=== PATIENT | male | born 1995 | race Caucasian/White ===

== ENCOUNTER 2016-04-29 03:08 | Emergency (ER) | payer BC ==
[2016-04-29] MEDS ORDERED: 0.9 % SODIUM CHLORIDE 1,000 ML BAG IV ONE (03:10)
[2016-04-29] MEDS ORDERED: KETOROLAC 30 MG/ML VIAL IVP ONE (03:10)
[2016-04-29] MEDS ORDERED: ONDANSETRON HCL IV 4 MG/2 ML VIAL IV ONE (03:10)
[2016-04-29 03:25] LABS: BASO % 0.5 % (0-6); EOS % 1.7 % (0-6); GRAN % 41.6 % (47-80); HEMATOCRIT 42.4 % (42.0-52.0); HEMOGLOBIN 14.9 gm/dl (14.0-18.0); LYMPH % 49.3 % (16-45); MEAN CORPUSCULAR HEMOGLOBIN 29.9 pg (27-33); MEAN CORPUSCULAR HGB CONC 35.1 g/dl (32-36); MEAN PLATELET VOLUME 8.6 fl (7.4-10.4); MONO % 6.9 % (0-9); PLATELET COUNT 330 K/uL (130-400); RED BLOOD COUNT 4.99 M/uL (4.40-5.70); RED CELL DISTRIBUTION WIDTH 12.6 % (11.5-14.5); WHITE BLOOD COUNT W/O DIFF 5.9 K/uL (4.2-12.2)
--- NOTE | 2016-04-29 03:29 | Emergency Department Record ---
History of Present Illness - General Chief complaint: Flank Pain Stated complaint: BACK PAIN Time Seen by Provider: 04/29/16 03:10 Source: Patient, Family Mode of Arrival: Ambulatory Limitations: No limitations - History of Present Illness Initial comments: pt came in after awaking in significant pain in the left flank. pt has had kidney stones in the past but does not remember what they feel like. pt has nausea MD Complaint: Other Onset/Timin -: Hour(s) Location: Left flank Radiation: L flank Severity: Moderate Quality: Aching Consistency: Constant Improves with: None Worsens with: None Reports: Nausea/vomiting - Related Data Previous Rx's Medication Instructions Recorded Hydrocodone/Acetaminophen [[place] 1 tab PO Q6H PRN #14 tab 04/29/16 5mg/325mg] Allergies Allergy/AdvReac Type Severity Reaction Status Date / Time No Known Drug Allergies Allergy Verified 04/29/16 03:20 Review of Systems Reviewed: No additional complaints except as noted below Constitutional: Reports: As per HPI. Denies: Chills, Fever, Malaise, Night sweats, Weakness, Weight change Eyes: Reports: As per HPI. Denies: Eye discharge, Eye pain, Photophobia, Vision change ENT: Reports: As per HPI. Denies: Congestion, Dental pain, Ear pain, Epistaxis , Hearing loss, Throat pain Respiratory: Reports: As per HPI. Denies: Cough, Dyspnea, Hemoptysis, Stridor, Wheezes Cardiovascular: Reports: As per HPI. Denies: Arrhythmia, Chest pain, Dyspnea on exertion, Edema, Murmurs, Orthopnea, Palpitations, Paroxysmal nocturnal dyspnea, Rheumatic Fever, Syncope Endocrine: Reports: As per HPI. Denies: Fatigue, Heat or cold intolerance, Polydipsia, Polyuria Gastrointestinal: Reports: As per HPI. Denies: Abdominal pain, Constipation, Diarrhea, Hematemesis, Hematochezia, Melena, Nausea, Vomiting Genitourinary: Reports: As per HPI. Denies: Dysuria, Frequency, Hematuria, Incontinence, Retention, Testicular pain, Testicular mass, Urgency Musculoskeletal: Reports: As per HPI. Denies: Arthralgia, Back pain, Gout, Joint swelling, Myalgia, Neck pain Skin: Reports: As per HPI. Denies: Bruising, Change in color, Change in hair/ nails, Lesions, Pruritus, Rash Neurological: Reports: As per HPI. Denies: Abnormal gait, Confusion, Headache, Numbness, Paresthesias, Seizure, Tingling, Tremors, Vertigo, Weakness Psychiatric: Reports: As per HPI. Denies: Anxiety, Auditory hallucinations, Depression, Homicidal thoughts, Suicidal thoughts, Visual hallucinations Hematological/Lymphatic: Reports: As per HPI. Denies: Anemia, Blood Clots, Easy bleeding, Easy bruising, Swollen glands Family Medical History Hx Kidney Disease: Father Physical Exam - General General Appearance: Alert, Oriented x3, Cooperative, Moderate distress - Head Head exam: Normal inspection - Eye Eye exam: Normal appearance, PERRL, EOMI Pupils: Normal accommodation - ENT ENT exam: Normal exam, Mucous membranes moist, Normal external ear exam, Normal orophraynx Ear exam: Normal external inspection. negative: External canal tenderness Nasal Exam: Normal inspection. negative: Discharge, Sinus tenderness Mouth exam: Normal external inspection, Tongue normal Teeth exam: Normal inspection. negative: Dental caries Throat exam: Normal inspection. negative: Tonsillar erythema, Tonsillar exudate - Neck Neck exam: Normal inspection, Full ROM. negative: Tenderness - Respiratory Respiratory exam: Normal lung sounds bilaterally. negative: Respiratory distress - Cardiovascular Cardiovascular Exam: Regular rate, Normal rhythm, Normal heart sounds - GI/Abdominal GI/Abdominal exam: Soft, Normal bowel sounds. negative: Tenderness - Rectal Rectal exam: Deferred - exam: Deferred - Extremities Extremities exam: Normal inspection, Full ROM, Normal capillary refill. negative: Tenderness - Back Back exam: Reports: Normal inspection, Full ROM. Denies: Muscle spasm, Rash noted, Tenderness - Neurological Neurological exam: Alert, CN II-XII intact, Normal gait, Oriented X3 - Psychiatric Psychiatric exam: Normal affect, Normal mood - Skin Skin exam: Dry, Intact, Normal color, Warm Course - Reevaluation(s) Reevaluation #1: 04/29/16 04:26 pt feels much better. Reevaluation #2: 04/29/16 04:28 pt told that he has a 6mm stone and might not be able to pass it. his pain is totally gone and pt wants to try it at home and follow up with urologist Medical Decision Making - Management Options MDM Management: Additional Work-up Planned (e.g. ADM/Transfer/OP Study) - Data Complexity MDM Data: Labs Ordered and/or Reviewed, X-Ray Ordered and/or Reviewed - Lab Data Result diagrams: 04/29/16 03:10 04/29/16 03:10 - Radiology Data Radiology results: Report reviewed, Image reviewed Disposition Disposition: Discharge Clinical Impression: Renal lithiasis Hydronephrosis Qualifiers: Hydronephrosis type: with ureteral calculous obstruction Qualified Code(s): N13.2 - Hydronephrosis with renal and ureteral calculous obstruction Disposition: Home, Self-Care Condition: (1) Good Instructions: Kidney Stones (ED), How to Strain Your Urine (ED) Additional Instructions: follow up with urologist. return sooner if worse. Prescriptions: Hydrocodone/Acetaminophen [[place] 5mg/325mg] 1 tab PO Q6H PRN #14 tab PRN Reason: Pain - General Referrals: ERYN PRINGLE M.D. [MEDICAL DOCTOR] - Forms: Patient Portal Access
[2016-04-29 03:38] LABS: ANION GAP 18.3 (7-16); BLOOD UREA NITROGEN 8 mg/dL (9-20); CARBON DIOXIDE 24.7 mmol/L (22-30); CREATININE 0.8 mg/dL (0.66-1.25); EST GLOMERULAR FILTRATION RATE > 60 ml/min; GLUCOSE,RANDOM 90 mg/dL (70-110)
[2016-04-29 04:04] LABS: URINE APPEARANCE CLEAR; URINE BILIRUBIN NEGATIVE (NEGATIVE); URINE BLOOD SMALL (NEGATIVE); URINE COLOR YELLOW; URINE GLUCOSE (UA) NEGATIVE (NEGATIVE); URINE KETONE NEGATIVE (NEGATIVE); URINE LEUKOCYTE ESTERASE NEGATIVE (NEGATIVE); URINE NITRITE NEGATIVE (NEGATIVE); URINE PROTEIN NEGATIVE (NEGATIVE); URINE UROBILINOGEN 0.2 E.U./dL (0.20 - 1.00)
[2016-04-29 04:13] LABS: URINE AMORPHOUS SEDIMENT 1+; URINE EPITHELIAL CELLS 0 - 2 (FEW); URINE WBC 0 - 2 (0-2/hpf)
[2016-04-29] MEDS ORDERED: HYDROCODONE/APAP 5/325MG TABLET PO ONE (04:27)
--- NOTE | 2016-05-03 07:58 | CT SCAN REPORT ---
EXAM: CT OF THE ABDOMEN AND PELVIS WITHOUT CONTRAST HISTORY: LEFT SIDED FLANK PAIN WORSE OVER THE PAST TWO HOURS. TECHNIQUE: Routine noncontrast CT images of the abdomen and pelvis were obtained. Comparison: 08/28/14. FINDINGS: The visualized lung bases are unremarkable. The liver, gallbladder, pancreas, spleen, and adrenals are unremarkable. Punctate nonobstructing intrarenal calculi are present bilaterally. There is a 6 mm obstructing calculus within the mid left ureter. Mild hydronephrosis and hydroureter. No right ureteral calculi or bladder calculi. The bowel is normal in caliber. The appendix has a normal noncontrast appearance. No abdominal or pelvic lymphadenopathy. The aorta is normal in caliber. No free air or free fluid. Small fat containing periumbilical hernia. No acute osseous abnormality. IMPRESSION: 1. OBSTRUCTING 6 MM CALCULUS MID LEFT URETER. THIS RESULTS IN MILD HYDRONEPHROSIS AND HYDROURETER. 2. PUNCTATE BILATERAL NONOBSTRUCTING INTRARENAL CALCULI. JOB NUMBER: [id number] [facility]
== END 2016-04-29 04:55 | disposition home or self-care (01) ==
LOC: ER 03:08
DX: N13.2 Hydronephrosis with renal and ureteral calculous obstruction (principal); R11.2 Nausea with vomiting, unspecified; Z87.442 Personal history of urinary calculi
CPT/HCPCS: 99284 ×2; 96374; 96375; 96361; 85025; 80048; 81001; 74176; J1885; J2405; J7030

== ENCOUNTER 2016-04-29 19:48 | Emergency (ER) | payer BC ==
[2016-04-29] MEDS ORDERED: KETOROLAC 30 MG/ML VIAL IVP ONE (20:06)
[2016-04-29] MEDS ORDERED: ONDANSETRON HCL IV 4 MG/2 ML VIAL IVP ONE ×2 (20:06→21:01)
[2016-04-29] MEDS ORDERED: 0.9 % SODIUM CHLORIDE 1,000 ML BAG IV ONE ×2 (20:07→21:01)
[2016-04-29 20:21] LABS: BASO % 0.3 % (0-6); EOS % 1.6 % (0-6); GRAN % 47.1 % (47-80); HEMATOCRIT 41.1 % (42.0-52.0); HEMOGLOBIN 14.3 gm/dl (14.0-18.0); LYMPH % 42.2 % (16-45); MEAN CELL VOLUME 86.7 fl (81-97); MEAN CORPUSCULAR HEMOGLOBIN 30.2 pg (27-33); MEAN CORPUSCULAR HGB CONC 34.8 g/dl (32-36); MEAN PLATELET VOLUME 8.6 fl (7.4-10.4); MONO % 8.8 % (0-9); PLATELET COUNT 289 K/uL (130-400); RED BLOOD COUNT 4.74 M/uL (4.40-5.70); RED CELL DISTRIBUTION WIDTH 12.6 % (11.5-14.5); WHITE BLOOD COUNT W/O DIFF 6.4 K/uL (4.2-12.2)
[2016-04-29 20:30] LABS: ANION GAP 15.5 (7-16); BLOOD UREA NITROGEN 13 mg/dL (9-20); CARBON DIOXIDE 26.5 mmol/L (22-30); CREATININE 0.9 mg/dL (0.66-1.25); EST GLOMERULAR FILTRATION RATE > 60 ml/min; GLUCOSE,RANDOM 85 mg/dL (70-110)
[2016-04-29] MEDS ORDERED: HYDROMORPHONE HCL 1 MG/ML CPJ IVP ONE (21:01)
--- NOTE | 2016-04-29 21:07 | Emergency Department Record ---
History of Present Illness - General Chief Complaint: Back Pain/Injury Time Seen by Provider: 04/29/16 20:05 Source: Patient Mode of Arrival: Ambulatory Limitations: No limitations - History of Present Illness Initial Comments: prt was here early this am for l flank pain and was dxd w 6mm l renal stone w hydronephrosis. pts pain was resolved sot he was sent home to f/u w urology or return if his pain returned and was not controlled w norco. pt was able to urinate. pt now returns because now his pain has returned. it radiates to the groin. Complaint: Other (l flank pain) Onset/Timin -: Days(s) Similar Symptoms Previously: Yes Severity: Moderate, Severe Severity scale (1-10): 8 Quality: Aching Consistency: Intermittent Improves With: None Worsens With: None Context: Unknown Associated Symptoms: Abdominal pain, Nausea/vomiting - Related Data Previous Rx's Medication Instructions Recorded Hydrocodone/Acetaminophen [[place] 1 tab PO Q6H PRN #14 tab 04/29/16 5mg/325mg] Allergies Allergy/AdvReac Type Severity Reaction Status Date / Time No Known Drug Allergies Allergy Verified 04/29/16 03:20 Travel Screening - Travel/Exposure Within Last 30 Days Have you traveled within the last 30 days?: No - Travel/Exposure Within Last Year Have you traveled outside the [place] in the last year?: No - Additonal Travel Details Have you been exposed to anyone with a communicable illness?: No - Travel Symptoms Symptom Screening: None Review of Systems Reviewed: No additional complaints except as noted below Constitutional: Reports: As per HPI. Denies: Chills, Fever, Malaise, Night sweats, Weakness, Weight change Eyes: Reports: As per HPI. Denies: Eye discharge, Eye pain, Photophobia, Vision change ENT: Reports: As per HPI. Denies: Congestion, Dental pain, Ear pain, Epistaxis , Hearing loss, Throat pain Respiratory: Reports: As per HPI. Denies: Cough, Dyspnea, Hemoptysis, Stridor, Wheezes Cardiovascular: Reports: As per HPI. Denies: Arrhythmia, Chest pain, Dyspnea on exertion, Edema, Murmurs, Orthopnea, Palpitations, Paroxysmal nocturnal dyspnea, Rheumatic Fever, Syncope Endocrine: Reports: As per HPI. Denies: Fatigue, Heat or cold intolerance, Polydipsia, Polyuria Gastrointestinal: Reports: As per HPI. Denies: Abdominal pain, Constipation, Diarrhea, Hematemesis, Hematochezia, Melena, Nausea, Vomiting Genitourinary: Reports: As per HPI. Denies: Dysuria, Frequency, Hematuria, Incontinence, Retention, Testicular pain, Testicular mass, Urgency Musculoskeletal: Reports: As per HPI. Denies: Arthralgia, Back pain, Gout, Joint swelling, Myalgia, Neck pain Skin: Reports: As per HPI. Denies: Bruising, Change in color, Change in hair/ nails, Lesions, Pruritus, Rash Neurological: Reports: As per HPI. Denies: Abnormal gait, Confusion, Headache, Numbness, Paresthesias, Seizure, Tingling, Tremors, Vertigo, Weakness Psychiatric: Reports: As per HPI. Denies: Anxiety, Auditory hallucinations, Depression, Homicidal thoughts, Suicidal thoughts, Visual hallucinations Hematological/Lymphatic: Reports: As per HPI. Denies: Anemia, Blood Clots, Easy bleeding, Easy bruising, Swollen glands Past Medical History - SOCIAL HISTORY Smoking Status: Never smoker Alcohol Use: Occassional - RESPIRATORY Hx Respiratory Disorders: No - GI Hx GI Disorders: No - Hx Genitourinary Disorders: Yes Hx Kidney Stones: Yes - ENDOCRINE Hx Endocrine Disorders: No - MUSCULOSKELETAL Hx Musculoskeletal Disorders: No - PSYCH Hx Psych Problems: No - HEMATOLOGY/ONCOLOGY Hx Hematology/Oncology Disorders: No Family Medical History Any Significant Family History?: No Hx Kidney Disease: Father Physical Exam - General General Appearance: Alert, Oriented x3, Cooperative, Moderate distress - Head Head exam: Normal inspection - Eye Eye exam: Normal appearance, PERRL, EOMI Pupils: Normal accommodation - ENT ENT exam: Normal exam, Mucous membranes moist, Normal external ear exam, Normal orophraynx Ear exam: Normal external inspection. negative: External canal tenderness Nasal Exam: Normal inspection. negative: Discharge, Sinus tenderness Mouth exam: Normal external inspection, Tongue normal Teeth exam: Normal inspection. negative: Dental caries Throat exam: Normal inspection. negative: Tonsillar erythema, Tonsillar exudate - Neck Neck exam: Normal inspection, Full ROM. negative: Tenderness - Respiratory Respiratory exam: Normal lung sounds bilaterally. negative: Respiratory distress - Cardiovascular Cardiovascular Exam: Regular rate, Normal rhythm, Normal heart sounds - GI/Abdominal GI/Abdominal exam: Soft, Normal bowel sounds. negative: Tenderness - Rectal Rectal exam: Deferred - exam: Deferred - Extremities Extremities exam: Normal inspection, Full ROM, Normal capillary refill. negative: Tenderness - Back Back exam: Reports: Normal inspection, Full ROM. Denies: Muscle spasm, Rash noted, Tenderness - Neurological Neurological exam: Alert, CN II-XII intact, Normal gait, Oriented X3 - Psychiatric Psychiatric exam: Normal affect, Normal mood - Skin Skin exam: Dry, Intact, Normal color, Warm Course Vital Signs 04/29/16 19:52 Temperature 98.3 F Pulse Rate [ 84 Pulse Ox Probe] Respiratory 24 Rate Blood Pressure 143/97 [Left Arm] Pulse Ox 100 - Reevaluation(s) Reevaluation #1: 04/29/16 21:16 d/w dr lancaster and transfer arranged Medical Decision Making - Lab Data Result diagrams: 04/29/16 20:08 04/29/16 20:08 Lab Results 04/29/16 04/29/16 Range/Units 20:08 20:08 WBC 6.4 (4.2-12.2) K/uL RBC 4.74 (4.40-5.70) M/uL Hgb 14.3 (14.0-18.0) gm/dl Hct 41.1 L (42.0-52.0) % MCV 86.7 (81-97) fl MCH 30.2 (27-33) pg MCHC 34.8 (32-36) g/dl RDW 12.6 (11.5-14.5) % Plt Count 289 (130-400) K/uL MPV 8.6 (7.4-10.4) fl Gran % 47.1 (47-80) % Lymphocytes % 42.2 (16-45) % Monocytes % 8.8 (0-9) % Eosinophils % 1.6 (0-6) % Basophils % 0.3 (0-6) % Sodium 141 (136-145) mmol/L Potassium 3.9 (3.5-5.1) mmol/L Chloride 99 (98-107) mmol/L Carbon Dioxide 26.5 (22-30) mmol/L Anion Gap 15.5 (7-16) BUN 13 (9-20) mg/dL Creatinine 0.9 (0.66-1.25) mg/dL Estimated GFR > 60 ml/min Random Glucose 85 (70-110) mg/dL Calcium 9.0 (8.5-10.1) mg/dL Disposition Disposition: Transfer Clinical Impression: Renal lithiasis Hydronephrosis Qualifiers: Hydronephrosis type: with ureteral calculous obstruction Qualified Code(s): N13.2 - Hydronephrosis with renal and ureteral calculous obstruction Disposition: Acute Care Hospital Transfer Transfer To: [facility] Reason For Transfer: 6mm renal stone Accepting Physician: dr lancaster Time Discussed w/Accepting Physician: 21:20 Forms: Patient Portal Access
[2016-04-29 21:54] LABS: URINE APPEARANCE CLEAR; URINE BILIRUBIN NEGATIVE (NEGATIVE); URINE BLOOD MODERATE (NEGATIVE); URINE COLOR YELLOW; URINE GLUCOSE (UA) NEGATIVE (NEGATIVE); URINE KETONE TRACE (NEGATIVE); URINE LEUKOCYTE ESTERASE NEGATIVE (NEGATIVE); URINE NITRITE NEGATIVE (NEGATIVE); URINE PROTEIN NEGATIVE (NEGATIVE); URINE UROBILINOGEN 0.2 E.U./dL (0.20 - 1.00)
[2016-04-29] MEDS ORDERED: 0.9 % SODIUM CHLORIDE 1000ML 1,000 ML IV ONE (21:57)
[2016-04-29 22:13] LABS: URINE AMORPHOUS SEDIMENT 2+; URINE EPITHELIAL CELLS 0 - 2 (FEW); URINE RBC 21 - 35 (NONE SEEN); URINE WBC 0 - 2 (0-2/hpf)
--- NOTE | 2016-05-03 14:28 | CT SCAN REPORT ---
EXAM: ABDOMEN AND PELVIS CT WITHOUT IV CONTRAST HISTORY: LEFT UPPER QUADRANT FLANK PAIN, ACUTE. TECHNIQUE: Noncontrast CT of the abdomen and pelvis was obtained. Comparison: Abdomen and pelvis CT 04/29/16 at 03:36 hours. FINDINGS: The lungs are clear. The liver, spleen, adrenals, pancreas and gallbladder are unremarkable. There are at least four nonobstructing 1 mm right intrarenal calculi. Persistent moderate left hydroureteronephrosis with two calculi in the mid left ureter with the largest measuring 5 mm and the other measuring 1 mm. This is located at the L4 level. The visualized loops of small and large bowel are of normal caliber with normal appendix. No free intraperitoneal fluid or adenopathy. No lytic or blastic lesion. IMPRESSION: 1. NO CHANGE FROM THE STUDY EARLIER IN THE DAY. PERSISTENT MODERATE LEFT HYDRONEPHROSIS DUE TO PARTIALLY OBSTRUCTING 5 MM CALCULUS IN THE MID LEFT URETER. ALSO ADJACENT 1 MM CALCULUS IN THE MID LEFT URETER. 2. NEPHROLITHIASIS ON THE RIGHT WELL. 3. NORMAL APPENDIX. JOB NUMBER: [id number] [facility]
== END 2016-04-29 22:01 | disposition short-term general hospital (02) ==
LOC: ER 19:48
DX: N13.2 Hydronephrosis with renal and ureteral calculous obstruction (principal); R11.2 Nausea with vomiting, unspecified; Z87.442 Personal history of urinary calculi
CPT/HCPCS: 99285 ×2; 96376; 96374; 96375; 96361; 85025; 80048; 81001; 74176; J1885; J2405; J1170; J7030

== ENCOUNTER 2016-07-25 13:41 | Emergency (ER) | payer BC ==
--- NOTE | 2016-07-25 13:54 | Emergency Department Record ---
History of Present Illness - General Chief complaint: Flank Pain Stated complaint: LEFT FLANK PAIN Time Seen by Provider: 07/25/16 13:52 Source: Patient Mode of Arrival: Ambulatory Limitations: No limitations - History of Present Illness Initial comments: The patient is here due to L flank pain for 3 days which got a lot worse last evening. He is having some nausea but no vomiting or fever. The patient has had a kidney stone just like this in the past. MD Complaint: Other Onset/Timin -: Days(s) Location: Left flank Radiation: Other Severity: Mild Severity scale (1-10): 6 Quality: Sharp Consistency: Constant Improves with: None Worsens with: None Reports: Blood in urine, Nausea/vomiting - Related Data Sexually active: Yes Previous Rx's Medication Instructions Recorded Hydrocodone/Acetaminophen [[place] 1 - 2 each PO .EVERY 4-6 HRS PRN 07/25/16 5-325 Tablet] #20 tablet Tamsulosin HCl [Flomax] 0.4 mg PO DAILY #7 cap.er.24h 07/25/16 Allergies Allergy/AdvReac Type Severity Reaction Status Date / Time No Known Drug Allergies Allergy Verified 04/29/16 03:20 Travel Screening - Travel/Exposure Within Last 30 Days Have you traveled within the last 30 days?: No Review of Systems Constitutional: Denies: Chills, Fever Eyes: Denies: Eye discharge ENT: Denies: Congestion Respiratory: Denies: Cough, Dyspnea Past Medical History - SOCIAL HISTORY Smoking Status: Never smoker Alcohol Use: Occassional Drug Use Detail:: Marijuana - RESPIRATORY Hx Respiratory Disorders: No - CARDIOVASCULAR Hx Cardio Disorders: No - NEURO Hx Neuro Disorders: No - GI Hx GI Disorders: No - Hx Genitourinary Disorders: Yes Hx Kidney Stones: Yes - ENDOCRINE Hx Endocrine Disorders: No - MUSCULOSKELETAL Hx Musculoskeletal Disorders: No - PSYCH Hx Psych Problems: No - HEMATOLOGY/ONCOLOGY Hx Hematology/Oncology Disorders: No Family Medical History Any Significant Family History?: Yes Hx Kidney Disease: Father Physical Exam - General General Appearance: Alert, Oriented x3, Cooperative, No acute distress - Head Head exam: Atraumatic, Normocephalic, Normal inspection - Eye Eye exam: Normal appearance, PERRL - Neck Neck exam: Normal inspection, Full ROM. negative: Tenderness - Respiratory Respiratory exam: Normal lung sounds bilaterally. negative: Respiratory distress - Cardiovascular Cardiovascular Exam: Regular rate, Normal rhythm, Normal heart sounds - GI/Abdominal GI/Abdominal exam: Soft, Normal bowel sounds, Tenderness (There is mild LLQ tenderness.). negative: Rebound, Rigid - Extremities Extremities exam: Normal inspection, Full ROM, Normal capillary refill. negative: Tenderness - Neurological Neurological exam: Normal gait. negative: Abnormal gait Course Vital Signs 07/25/16 13:47 Temperature 97.8 F Pulse Rate 83 Respiratory 22 Rate Blood Pressure 149/86 Pulse Ox 98 - Reevaluation(s) Reevaluation #1: The patient is doing better at this time. His pain is down to a 2/10. There is no nausea or vomiting. I did discuss the results of the labs and CT with the patient and the need for F/U. 07/25/16 15:53 Reevaluation #2: The patient is still doing well with no nausea, vomiting, or severe pain. I have been unable to contact the patient's Urologist but since the patient is doing so well we will discharge him with close F/U. 07/25/16 16:23 Medical Decision Making - Data Complexity MDM Data: Labs Ordered and/or Reviewed, X-Ray Ordered and/or Reviewed - Lab Data Result diagrams: 07/25/16 14:25 07/25/16 14:25 - Radiology Data Radiology results: Report reviewed (CT: 4 mm stone L distal ureter at the pelvic inlet with mild hydro.) Disposition Disposition: Discharge Clinical Impression: Renal lithiasis Disposition: Home, Self-Care Condition: (1) Good Instructions: Flank Pain (ED) Additional Instructions: Please drink plenty of fluids and take your pain medicines. Please see your Urologist later this week for recheck and call for an appointment. Please return to the ER for any increased pain, fever, or vomiting. Prescriptions: Tamsulosin HCl [Flomax] 0.4 mg PO DAILY #7 cap.er.24h Hydrocodone/Acetaminophen [[place] 5-325 Tablet] 1 - 2 each PO .EVERY 4-6 HRS PRN #20 tablet PRN Reason: Pain Forms: Patient Portal Access Time of Disposition: 16:27
[2016-07-25] MEDS ORDERED: ONDANSETRON HCL IV 4 MG/2 ML VIAL IV ONE (13:57)
[2016-07-25] MEDS ORDERED: KETOROLAC 30 MG/ML VIAL IVP ONE (13:57)
[2016-07-25] MEDS ORDERED: 0.9 % SODIUM CHLORIDE 1,000 ML BAG IV ONE ×2 (13:57→16:05)
[2016-07-25 14:33] LABS: BASO % 0.4 % (0-6); EOS % 1.5 % (0-6); GRAN % 55.8 % (47-80); HEMATOCRIT 41.1 % (42.0-52.0); HEMOGLOBIN 13.9 gm/dl (14.0-18.0); LYMPH % 34.7 % (16-45); MEAN CELL VOLUME 85.1 fl (81-97); MEAN CORPUSCULAR HGB CONC 33.8 g/dl (32-36); MEAN PLATELET VOLUME 8.7 fl (7.4-10.4); MONO % 7.6 % (0-9); PLATELET COUNT 276 K/uL (130-400); RED BLOOD COUNT 4.83 M/uL (4.40-5.70); RED CELL DISTRIBUTION WIDTH 12.6 % (11.5-14.5); URINE APPEARANCE SL CLOUDY; URINE BILIRUBIN NEGATIVE (NEGATIVE); URINE BLOOD LARGE (NEGATIVE); URINE COLOR RED; URINE GLUCOSE (UA) NEGATIVE (NEGATIVE); URINE KETONE NEGATIVE (NEGATIVE); URINE LEUKOCYTE ESTERASE NEGATIVE (NEGATIVE); URINE NITRITE NEGATIVE (NEGATIVE); URINE UROBILINOGEN 0.2 E.U./dL (0.20 - 1.00); WHITE BLOOD COUNT W/O DIFF 4.7 K/uL (4.2-12.2)
[2016-07-25 14:34] LABS: MEAN CORPUSCULAR HEMOGLOBIN 28.7 pg (27-33)
[2016-07-25 14:43] LABS: URINE BACTERIA NONE SEEN; URINE EPITHELIAL CELLS NONE SEEN (FEW); URINE WBC NONE SEEN (0-2/hpf)
[2016-07-25] MEDS ORDERED: HYDROMORPHONE HCL 1 MG/ML CPJ IVP ONE ×2 (15:01→16:23)
[2016-07-25 15:32] LABS: ANION GAP 10.2 (7-16); BLOOD UREA NITROGEN 11 mg/dL (9-20); CARBON DIOXIDE 25.8 mmol/L (22-30); CREATININE 0.8 mg/dL (0.66-1.25); EST GLOMERULAR FILTRATION RATE > 60 ml/min; GLUCOSE,RANDOM 90 mg/dL (70-110)
--- NOTE | 2016-07-26 12:17 | CT SCAN REPORT ---
EXAM: CT OF THE ABDOMEN AND PELVIS WITHOUT CONTRAST HISTORY: GROSS HEMATURIA, LEFT LOWER QUADRANT PAIN. TECHNIQUE: Sequential axial images were obtained from the diaphragms through the ischiorectal fossa without intravenous or oral contrast administration. FINDINGS: There is a 4 mm calcification in the distal left ureter at the pelvic inlet. This produces mild left hydronephrosis. No additional calculi are appreciated. The nonopacified liver, gallbladder, pancreas, and spleen appear normal. The adrenal glands appear normal. The small and large bowel appears normal. The urinary bladder appears normal. The osseous structures are normal. IMPRESSION: 4 MM OBSTRUCTING CALCULUS IN THE DISTAL LEFT URETER AT THE PELVIC INLET. MILD HYDRONEPHROSIS. JOB NUMBER: [id number] [facility]
== END 2016-07-25 16:46 | disposition home or self-care (01) ==
LOC: ER 13:41
DX: N13.2 Hydronephrosis with renal and ureteral calculous obstruction (principal); R11.2 Nausea with vomiting, unspecified; R31.0 Gross hematuria; Z87.442 Personal history of urinary calculi
CPT/HCPCS: 99284 ×2; 96376; 96374; 96375; 85025; 80048; 81001; 74176; J1885; J2405; J1170; J7030

== ENCOUNTER 2016-07-29 08:02 | Emergency (ER) | payer BC ==
[2016-07-29] MEDS ORDERED: MORPHINE SULFATE 5 MG/ML PFS IVP ONE (08:16)
[2016-07-29] MEDS ORDERED: KETOROLAC 30 MG/ML VIAL IVP ONE (08:16)
[2016-07-29] MEDS ORDERED: ONDANSETRON HCL IV 4 MG/2 ML VIAL IVP ONE (08:16)
--- NOTE | 2016-07-29 08:21 | Emergency Department Record ---
History of Present Illness - General Chief complaint: Flank Pain Stated complaint: FLANK PAIN Time Seen by Provider: 07/29/16 08:15 Source: Patient Mode of Arrival: Ambulatory Limitations: No limitations - History of Present Illness Initial comments: 21 yo male presents to ED with a CC of left sided flank pain and lower pelvic pain that worsened this morning associated with vomiting symptoms. Patient was diagnosed with a 4 kidney stone 4 days ago, and is scheduled to see Dr. Briones Sunday. Patient reports previous lithotripsy for his symptoms as well. Patient denies fevers of chills symptoms. MD Complaint: Other Onset/Timin -: Hour(s) Location: Left flank, Left inguinal region, Right inguinal region Radiation: None Severity: Severe Severity scale (1-10): 10 Quality: Sharp Consistency: Constant Improves with: None Worsens with: None Other - Related Data Previous Rx's Medication Instructions Recorded Hydrocodone/Acetaminophen [Killdeer 1 - 2 each PO .EVERY 4-6 HRS PRN 07/25/16 5-325 Tablet] #20 tablet Tamsulosin HCl [Flomax] 0.4 mg PO DAILY #7 cap.er.24h 07/25/16 Ondansetron [Zofran Odt] 4 mg PO Q6H PRN #20 tab.rapdis 07/29/16 Allergies Allergy/AdvReac Type Severity Reaction Status Date / Time No Known Drug Allergies Allergy Verified 07/29/16 08:04 Travel Screening - Travel/Exposure Within Last 30 Days Have you traveled within the last 30 days?: No - Travel/Exposure Within Last Year Have you traveled outside the [place] in the last year?: No - Additonal Travel Details Have you been exposed to anyone with a communicable illness?: No - Travel Symptoms Symptom Screening: None Review of Systems Constitutional: Denies: Chills, Fever, Malaise, Night sweats Eyes: Denies: Eye discharge, Eye pain ENT: Denies: Congestion, Ear pain, Epistaxis Respiratory: Denies: Cough, Dyspnea Cardiovascular: Denies: Chest pain, Dyspnea on exertion Endocrine: Denies: Fatigue, Heat or cold intolerance Gastrointestinal: Reports: Abdominal pain, Nausea, Vomiting Genitourinary: Denies: Hematuria, Incontinence, Retention, Testicular pain Musculoskeletal: Denies: Arthralgia, Back pain Skin: Denies: Bruising, Change in color, Change in hair/nails Neurological: Denies: Abnormal gait, Confusion, Headache, Seizure Psychiatric: Denies: Anxiety Hematological/Lymphatic: Denies: Anemia, Blood Clots Past Medical History - SOCIAL HISTORY Smoking Status: Never smoker Alcohol Use: Occassional Drug Use Detail:: Marijuana - RESPIRATORY Hx Respiratory Disorders: No - CARDIOVASCULAR Hx Cardio Disorders: No - NEURO Hx Neuro Disorders: No - GI Hx GI Disorders: No - Hx Genitourinary Disorders: Yes Hx Kidney Stones: Yes - ENDOCRINE Hx Endocrine Disorders: No - MUSCULOSKELETAL Hx Musculoskeletal Disorders: No - PSYCH Hx Psych Problems: No - HEMATOLOGY/ONCOLOGY Hx Hematology/Oncology Disorders: No Family Medical History Any Significant Family History?: Yes Hx Kidney Disease: Father Physical Exam - General General Appearance: Alert, Oriented x3, Cooperative, Moderate distress, Other ( patient is dry heaving on examination, appears distressed due to his pain symptoms) Limitations: No limitations - Head Head exam: Atraumatic, Normocephalic, Normal inspection Head exam detail: negative: Abrasion, Contusion, Xie's sign, General tenderness, Hematoma, Laceration - Eye Eye exam: Normal appearance. negative: Conjunctival injection, Periorbital swelling, Periorbital tenderness, Scleral icterus - ENT Ear exam: negative: Auricular hematoma, Auricular trauma Nasal Exam: negative: Active bleeding, Discharge, Dried blood, Foreign body Mouth exam: negative: Drooling, Laceration, Muffled voice, Tongue elevation - Neck Neck exam: Normal inspection. negative: Meningismus, Tenderness - Respiratory Respiratory exam: Normal lung sounds bilaterally. negative: Rales, Respiratory distress, Rhonchi, Stridor - Cardiovascular Cardiovascular Exam: Regular rate, Normal rhythm, Normal heart sounds - GI/Abdominal GI/Abdominal exam: Soft. negative: Rebound, Rigid, Tenderness - Rectal Rectal exam: Deferred - exam: Deferred - Extremities Extremities exam: Normal inspection. negative: Pedal edema, Tenderness - Back Back exam: Reports: Normal inspection. Denies: CVA tenderness (R), CVA tenderness (L) - Neurological Neurological exam: Alert, Normal gait, Oriented X3 - Psychiatric Psychiatric exam: Normal affect, Normal mood - Skin Skin exam: Normal color. negative: Abrasion Type of lesion: negative: abrasion Course Vital Signs 07/29/16 08:08 Temperature 98.4 F Pulse Rate 71 Respiratory 20 Rate Blood Pressure 153/98 Pulse Ox 99 - Reevaluation(s) Reevaluation #1: 07/29/16 08:22 CT Abdomen and Pelvis 07/25/14: 4 mm obstructing calculus at the distal left ureter with mild hydronephrosis present. Repeat UA and renal function tests ordered, analgesia/antiemetics ordered for his symptoms. Reevaluation #2: 07/29/16 09:09 Comp. panel reviewed, renal function appears normal. Patient reassessed, appears much more comfortable (reports pain is down to 2/10) , awaiting UA sample. Based on exam findings and normal renal function, repeat CT imaging does not appears indicated at this time. Will monitor for another hour to determine if the patient's pain symptoms rebound while also awaiting UA sample to exclude infection. Patient and mother agree with the plan as discussed. Patient reports he has approximately #13 Killdeer tablets left at home currently. 07/29/16 09:14 Reevaluation #3: 07/29/16 10:06 UA appears negative for infection. Pain continues to be well controlled, and the patient appears stable for discharge at this time. Reevaluation #4: 07/29/16 11:03 Patient reassessed, resting comfortably and reports that his pain symptoms are well controlled at this time. Patient appears stable for discharge with instructions to follow-up with Dr. Briones Sunday as scheduled. Medical Decision Making - Lab Data Result diagrams: 07/29/16 08:20 Disposition Disposition: Discharge Clinical Impression: Ureteral calculus Disposition: Home, Self-Care Condition: (2) Stable Instructions: Kidney Stones (ED) Additional Instructions: Return to ED if your symptoms worsen or if you have any concerns. Zofran as directed, Killdeer as previously prescribed. Follow-up with Dr. Briones as scheduled Sunday. Prescriptions: Ondansetron [Zofran Odt] 4 mg PO Q6H PRN #20 tab.rapdis PRN Reason: Nausea/Vomiting Forms: Patient Portal Access Time of Disposition: :04
[2016-07-29] MEDS ORDERED: 0.9 % SODIUM CHLORIDE 1000ML 1,000 ML IV SCH (08:30)
[2016-07-29 09:03] LABS: ALB/GLOB RATIO 1.7 (1.1-1.8); ALBUMIN 4.5 gm/dL (3.5-5.0); ALKALINE PHOSPHATASE 72 U/L (38-126); ALT/SGPT 31 U/L (21-72); ANION GAP 10.8 (7-16); AST/SGOT 19 U/L (17-59); BILIRUBIN,TOTAL 0.48 mg/dL (0.2-1.3); BLOOD UREA NITROGEN 13 mg/dL (9-20); CARBON DIOXIDE 26.2 mmol/L (22-30); CREATININE 0.9 mg/dL (0.66-1.25); EST GLOMERULAR FILTRATION RATE > 60 ml/min; GLUCOSE,RANDOM 112 mg/dL (70-110); TOTAL PROTEIN 7.2 gm/dL (6.3-8.2)
[2016-07-29 10:01] LABS: URINE APPEARANCE CLEAR; URINE BILIRUBIN NEGATIVE (NEGATIVE); URINE BLOOD MODERATE (NEGATIVE); URINE COLOR YELLOW; URINE GLUCOSE (UA) NEGATIVE (NEGATIVE); URINE KETONE NEGATIVE (NEGATIVE); URINE LEUKOCYTE ESTERASE NEGATIVE (NEGATIVE); URINE NITRITE NEGATIVE (NEGATIVE); URINE PROTEIN NEGATIVE (NEGATIVE); URINE UROBILINOGEN 0.2 E.U./dL (0.20 - 1.00)
[2016-07-29 10:10] LABS: URINE BACTERIA NONE SEEN; URINE EPITHELIAL CELLS NONE SEEN (FEW); URINE RBC 21 - 35 (NONE SEEN); URINE WBC NONE SEEN (0-2/hpf)
[2016-07-29] MEDS ORDERED: HYDROCODONE/APAP 10/325 TABLET PO ONE (10:10)
== END 2016-07-29 11:19 | disposition home or self-care (01) ==
LOC: ER 08:02
DX: N13.2 Hydronephrosis with renal and ureteral calculous obstruction (principal); Z87.442 Personal history of urinary calculi
CPT/HCPCS: 80053; 81001; 96361; 96374; 96375; 99284; J1885; J2405; J7030

== ENCOUNTER 2019-01-09 11:23 | Emergency (ER) | payer BC ==
[2019-01-09] MEDS ORDERED: 0.9 % SODIUM CHLORIDE 1,000 ML BAG IV ONE (11:38)
[2019-01-09] MEDS ORDERED: ONDANSETRON HCL IV 4 MG/2 ML VIAL IV ONE (11:38)
[2019-01-09] MEDS ORDERED: KETOROLAC 30 MG/ML VIAL IVP ONE (11:39)
[2019-01-09 11:50] LABS: ABSOLUTE NEUTROPHIL COUNT 4.69; HEMATOCRIT 41.8 % (42.0-52.0); HEMOGLOBIN 14.4 gm/dl (14.0-18.0); MEAN CELL VOLUME 84.4 fl (81-97); MEAN CORPUSCULAR HEMOGLOBIN 29.1 pg (27-33); MEAN CORPUSCULAR HGB CONC 34.4 g/dl (32-36); MEAN PLATELET VOLUME 8.6 fl (7.4-10.4); PLATELET COUNT 264 K/uL (130-400); RED BLOOD COUNT 4.95 M/uL (4.40-5.70); WHITE BLOOD COUNT W/O DIFF 6.7 K/uL (4.2-12.2)
--- NOTE | 2019-01-09 11:50 | Emergency Department Record ---
History of Present Illness - General Chief complaint: Cold Stated complaint: THINKS HE HAS EEE Time Seen by Provider: 01/09/19 11:38 Source: Patient Mode of Arrival: Ambulatory Limitations: No limitations - History of Present Illness Initial comments: The patient is here due to not feeling well for one day. He became ill last evening with body aches, a YANCEY, and multiple episodes of vomiting which has persisted until this AM. The patient denies any neck pain, visual changes or photophobia. MD complaint: Other Onset/Timin -: Days(s) Improves with: None Worsens with: None - Related Data Previous Rx's Medication Instructions Recorded Ondansetron [Zofran Odt] 4 mg SL .Q4-6H PRN #12 tab.rapdis 01/09/19 Allergies Allergy/AdvReac Type Severity Reaction Status Date / Time No Known Drug Allergies Allergy Verified 01/09/19 11:34 Travel Screening - Travel/Exposure Within Last 30 Days Have you traveled within the last 30 days?: No Review of Systems Constitutional: Reports: Chills, Fever, Malaise Eyes: Denies: Eye discharge ENT: Denies: Congestion Respiratory: Denies: Cough Cardiovascular: Denies: Arrhythmia Endocrine: Reports: Fatigue Gastrointestinal: Reports: Nausea, Vomiting. Denies: Diarrhea Genitourinary: Denies: Dysuria Musculoskeletal: Denies: Arthralgia Skin: Denies: Bruising Past Medical History - SOCIAL HISTORY Smoking Status: Never smoker Alcohol Use: None Drug Use: None - RESPIRATORY Hx Respiratory Disorders: No - CARDIOVASCULAR Hx Cardio Disorders: No - NEURO Hx Neuro Disorders: No - GI Hx GI Disorders: No - Hx Genitourinary Disorders: Yes Hx Kidney Stones: Yes - ENDOCRINE Hx Endocrine Disorders: No - MUSCULOSKELETAL Hx Musculoskeletal Disorders: No - PSYCH Hx Psych Problems: No - HEMATOLOGY/ONCOLOGY Hx Hematology/Oncology Disorders: No Family Medical History Any Significant Family History?: Yes Hx Kidney Disease: Father Physical Exam - General General Appearance: Alert, Oriented x3, Cooperative, No acute distress - Head Head exam: Atraumatic, Normocephalic, Normal inspection - Eye Eye exam: Normal appearance, PERRL, EOMI - ENT Throat exam: Normal inspection. negative: Tonsillar erythema, Tonsillar exudate - Neck Neck exam: Normal inspection, Full ROM. negative: Lymphadenopathy, Meningismus (The neck is very supple.), Tenderness - Respiratory Respiratory exam: Normal lung sounds bilaterally. negative: Respiratory distress - Cardiovascular Cardiovascular Exam: Regular rate, Normal rhythm, Normal heart sounds - GI/Abdominal GI/Abdominal exam: Soft, Normal bowel sounds. negative: Tenderness - Extremities Extremities exam: Normal inspection, Full ROM, Normal capillary refill. negative: Tenderness - Neurological Neurological exam: Alert, Normal gait, Other (Neg Kernig's and Brudsinski's reflexes.). negative: Abnormal gait, Motor sensory deficit - Skin Skin exam: negative: Rash Course Vital Signs 01/09/19 11:31 Temperature 98.2 F Pulse Rate [ 100 H Pulse Ox Probe] Respiratory 16 Rate Blood Pressure 128/83 [Left Arm] Pulse Ox 98 - Reevaluation(s) Reevaluation #1: The patient is doing a lot better at this time. He states his YANCEY is gone and he is feeling a lot better. 01/09/19 12:17 Reevaluation #2: The patient is doing a lot better at this time. He has no YANCEY, neck pain or fever but his nausea is present mildly. I did discuss options with the patient including a spinal tap due to the remote possibility of viral meningitis or EEE. I did explain to the patient that I do feel he has a viral process but do not believe he has meningitis at this time due to the lack of a YANCEY, neck pain, f ever, or any neck stiffness. The patient is refusing the LP and will return for any worsening symptoms. 01/09/19 13:01 Medical Decision Making - Data Complexity MDM Data: Labs Ordered and/or Reviewed - Lab Data Result diagrams: 01/09/19 11:48 01/09/19 11:48 Disposition Disposition: Discharge Clinical Impression: Viral illness Disposition: Home, Self-Care Condition: (2) Stable Instructions: Viral Syndrome (ED) Additional Instructions: Please drink plenty of fluids and slowly advance your diet. Use Tylenol or Motrin for fever and body aches and use Zofran for nausea. Please see your doctor tomorrow for recheck and return to the ER for any return of the YANCEY, neck pain or any fever. Prescriptions: Ondansetron [Zofran Odt] 4 mg SL .Q4-6H PRN #12 tab.rapdis PRN Reason: Nausea Forms: Patient Portal Access Time of Disposition: 13:05 Quality - Quality Measures Quality Measures: N/A - Blood Pressure Screening View Details: Yes Does Patient Have Any of the Following: No Blood Pressure Classification: Normal BP Reading Systolic Measurement: 104 Diastolic Measurement: 69 Screening for High Blood Pressure: < Normal BP, F/U Not Required > [G8783]
[2019-01-09 12:04] LABS: BLOOD UREA NITROGEN 11 mg/dL (6-20); CREATININE 0.8 mg/dL (0.7-1.2); EST GLOMERULAR FILTRATION RATE > 60 mL/min
[2019-01-09 12:05] LABS: TOTAL PROTEIN 7.2 g/dL (6.6-8.7)
[2019-01-09 12:07] LABS: GLUCOSE,RANDOM 106 mg/dL (74-109)
[2019-01-09 12:10] LABS: ALBUMIN 4.5 g/dL (4.0-5.0); ALKALINE PHOSPHATASE 84 U/L (40-129); ALT/SGPT 23 U/L (<41); AST/SGOT 16 U/L (10.0-50.0); C-REACTIVE PROTEIN 11.58 mg/dL (<0.5)
[2019-01-09 12:11] LABS: BILIRUBIN,DIRECT < 0.2 mg/dL (0-0.3)
[2019-01-09 12:25] LABS: PLATELET ESTIMATE NORMAL (NORMAL)
[2019-01-09] MEDS ORDERED: ONDANSETRON HCL IV 4 MG/2 ML VIAL IVP ONE (12:58)
== END 2019-01-09 13:17 | disposition home or self-care (01) ==
LOC: ER 11:23
DX: B34.9 Viral infection, unspecified (principal); R51 Headache; R11.2 Nausea with vomiting, unspecified
CPT/HCPCS: 80048; 80076; 85027; 86140; 96361; 96374; 96375; 96376; 99284; J1885; J2405; J7030